=== PATIENT | female | born 1965 | race Caucasian/White ===

== ENCOUNTER 2017-10-23 05:45 | Outpatient (CLI) | payer OTHER ==
[~2017-10-23] VITALS: Ht 162.6 cm; Wt 127.5 kg
[2017-10-23] VITALS (10 sets, daily range): BP systolic 89–136; BP diastolic 48–77
[2017-10-23] MEDS ORDERED: ADVAIR 250-501 EACH INH (06:34)
[2017-10-23] MEDS ORDERED: LASTACAFT3 ML OP (06:34)
[2017-10-23] MEDS ORDERED: FLONASE1 SPRAYS NASAL (06:34)
[2017-10-23] MEDS ORDERED: NORCO 10-325 T1 EACH ORAL (06:34)
[2017-10-23] MEDS ORDERED: VENTOLIN HFA18 GM INH (06:34)
[2017-10-23] MEDS ORDERED: CYMBALTA60 MG ORAL (06:34)
[2017-10-23] MEDS ORDERED: SOMA350 MG PO (06:34)
[2017-10-23] MEDS ORDERED: COLCRYS0.6 M1 PO (06:34)
[2017-10-23] MEDS ORDERED: ESTRADIOL TRAN1 EAC2 TD (06:34)
[2017-10-23] MEDS ORDERED: EPINEPHrine 1mg/1ml Amp ONE (07:02)
[2017-10-23] MEDS ORDERED: Thrombin 5000 units spray kit TOPIC ONE (07:02)
[2017-10-23] MEDS ORDERED: Bupivacaine 0.5% Inj 30 ml vial INJ ONE (07:02)
[2017-10-23] MEDS ORDERED: Surgicel 4in x 8in TOPIC ONE (07:02)
[2017-10-23] MEDS ORDERED: Thrombin 5000 units TOPIC ONE (07:02)
[2017-10-23] MEDS ORDERED: Gelfoam Absorbable 1gm powder pkt TOPIC ONE (07:03)
[2017-10-23] MEDS ORDERED: Bacitracin 50000 Units Vial ONE (07:03)
--- NOTE | 2017-10-23 07:07 | Pre-Procedure Note/Attestation ---
Pre-Procedure Note/Attestation Complete Prior to Procedure Planned Procedure: not applicable Procedure Narrative: For C5-6 ACDF, Has had good relief from C5-6 bilateral selective nerve root blocks. 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 I attest that, if there was a reasonable possibility of needing a blood transfusion, the patient (or the patient's legal insurance claims representative) was given the [place] [employer] standardized written summary, pursuant to the Manohar Zebulon Blood Safety Act ([place] Health and Safety Code # 1645, as amended). I attest that I re-evaluated the patient just prior to the surgery and that there has been no change in the patient's H&P, except as documented below: MARRY PAK Oct 23, 2017 07:07
[2017-10-23] MEDS ORDERED: Clindamycin 600mg 0 ML IV ONE (07:27)
[2017-10-23] MEDS ORDERED: Propofol 200mg/20ml IV ONE (07:30)
[2017-10-23] MEDS ORDERED: Midazolam 2mg/2ml Inj ONE (07:30)
[2017-10-23] MEDS ORDERED: LR 1000ml ONE (07:30)
[2017-10-23] MEDS ORDERED: Glycopyrrolate 0.2mg/ml 1ml Vial ONE (07:30)
[2017-10-23] MEDS ORDERED: Zemuron 50mg/5ml Inj IV ONE (07:30)
[2017-10-23] MEDS ORDERED: Neostigmine 1mg/ml 10ml Inj ONE (07:30)
[2017-10-23] MEDS ORDERED: fentaNYL 100 mcg/2 mL IV ONE (07:30)
--- NOTE | 2017-10-23 08:39 | General Surgery Progress Note ---
General Surgery-Progress Note Subjective Reason for Consult Patient prepped for C5-5 ACDF: Initial X-Ray localization images did not permit visualization of the operative site (C5-5) due to patients body morphology. Decision to not proceed was made. Procedure Performed General anesthesia with intubation. NO SURGICAL PROCEDURE PERFORMED. Objective Last 24 Hour Vital Signs Date Time Temp Pulse Resp B/P (MAP) Pulse Ox O2 Delivery O2 Flow Rate FiO2 10/23/17 06:43 97.4 63 20 136/64 100 Room Air Plan Additional Comments Patient will be recovered and likely discharged home today. MARRY PAK Oct 23, 2017 08:39
[2017-10-23] MEDS ORDERED: LR 1000ml 1,000 ML IVLG SCH (08:49)
--- NOTE | 2017-10-23 08:54 | Anethesia Preoperative Eval ---
Anesthesia Pre-op PMH/ROS General Date of Evaluation: Oct 23, 2017 Time of Evaluation: 08:55 Anesthesiologist: Verna ASA Score: ASA 3 Mallampati Score Class I : Soft palate, uvula, fauces, pillars visible Class II: Soft palate, uvula, fauces visible Class III: Soft palate, base of uvula visible Class IV: Only hard plate visible Mallampati Classification: Class III Surgeon: Yeimi Diagnosis: Hyperostosis Surgical Procedure: ACDF Allergies: Coded Allergies: KETOROLAC (Verified Allergy, Severe, 10/23/17) SWELL UP AND CLOSES AIRWAY PENICILLINS (Verified Allergy, Severe, 10/23/17) SWELL UP AND CLOSES AIRWAY Medications: see eMAR Past Medical History Cardiovascular: Denies: HTN, CAD, SD, valve dz, arrhythmia, other Pulmonary: Reports: asthma, MICHELINE, Denies: COPD, other Gastrointestinal/Genitourinary: Denies: GERD, CRI, ESRD, other Neurologic/Psychiatric: Denies: dementia, CVA, depression/anxiety, TIA, other Endocrine: Denies: DM, hypothyroidism, steroids, other HEENT: Denies: cataract (L), cataract (R), glaucoma, [place] (L), [place] (R), other Hematology/Immune: Denies: anemia, DVT, bleeding disorder, other Musculoskeletal/Integumentary: Denies: OA, RA, DJD, DDD, edema, other Other: obesity PMH Narrative: Asthma, MICHELINE, obesity, OA PSxH Narrative: Knee scopes, BETH, lumbar fusion Anesthesia Pre-op Phys. Exam Physician Exam Last Vital Signs Date Time Temp Pulse Resp B/P (MAP) Pulse Ox O2 Delivery O2 Flow Rate FiO2 10/23/17 06:43 97.4 63 20 136/64 100 Room Air Constitutional: NAD Neurologic: CN 2-12 intact Cardiovascular: RRR, no M/R/G Gastrointestinal: S/NT/ND Airway Exam Mallampati Score: Class III MO: full ROM: full Teeth: intact Anesthesia Pre-op A/P Labs WNL Studies Pre-op Studies: EKG - SR Risk Assessment & Plan Assessment: Class 3 patient for ACDF Plan: GETA, SedLine Status Change Before Surgery: Yes - Case cancelled by Dr. Jalloh after intubation secondary to poor x-ray visualization. Pre-Antibiotics Drug: None ROWENA CHISHOLM M.D. Oct 23, 2017 08:54
--- NOTE | 2017-10-23 08:56 | Immediate Post-Op Evaluation ---
Immediate Post-Op Evalulation Immediate Post-Op Evalulation Procedure: Cancelled ACDF Date of Evaluation: Oct 23, 2017 Time of Evaluation: 09:00 IV Fluids: 700 Blood Pressure Systolic: 92 Blood Pressure Diastolic: 47 Pulse Rate: 77 Respiratory Rate: 21 O2 Sat by Pulse Oximetry: 95 Temperature (Fahrenheit): 97.5 Pain Score (1-10): 0 Nausea: No Vomiting: No Complications Case cancelled by surgeon after intubation Patient Status: awake, patent, extubated, none Hydration Status: adequate Drug: None ROWENA CHISHOLM M.D. Oct 23, 2017 08:56
[2017-10-23] MEDS ORDERED: Midazolam 2mg/2ml Inj IVP PRN (09:00)
[2017-10-23] MEDS ORDERED: DiphenhydrAMINE 50mg/ml Inj IVP PRN (09:00)
[2017-10-23] MEDS ORDERED: Meperidine 50mg/ml Inj(FOR RIGORS ONLY) IVP ONE (09:00)
--- NOTE | 2017-10-23 09:14 | Discharge Instructions ---
Discharge Instructions Discharge Instructions Resume Normal Activity?: Yes Activity: resume normal activities Follow Up Orders Call office for post op appointment. For Congestive Heart Failure Reminder Report to your physician any weight gain of 5 pounds or more in one week. MARRY PEREIRA Oct 23, 2017 09:14
--- NOTE | 2017-10-23 15:30 | Operative Note - Dictated ---
DATE OF OPERATION: 10/23/2017 DATE OF PROPOSED PROCEDURE: 10/23/2017 SURGEON: Otf Jalloh M.D. SUPERVISOR FINISHING ROOM: Shayne Zhou ANESTHESIA: General endotracheal with arterial blood pressure monitoring. ANESTHESIOLOGIST: Manohar Gillespie M.D. 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 OPERATIVE PROCEDURE: The procedure was not performed because of x-ray visualization and physical problems encountered in positioning and traction of the patient's head and extremities for surgery. It was felt that with the patient's sleep apnea, physical habitus, the neck inability to visualize radiographically the C5-C6 level, and difficulty in defining landmarks because of the patient's extreme obesity that going ahead with surgery was not feasible. The patient was induced in the supine position while on the operating table after skillful endotracheal intubation. The head and neck area were then exposed and a bolster was placed between the shoulder blades. The arms were retracted distally and tucked and with traction on each arm, a bolster was placed behind the neck and a traction jimenez was placed on the occiput and chin. A 15 pounds of distal traction were used proximally. Evaluation of the anterior neck revealed a huge anterior pannus extending all the way to 2 cm above the sternal notch, the cricoid and hyoid cartilages were not palpable through this large pannus. Fluoroscopy was brought in and used to take a lateral x-ray. The body of C4 was the last visualizable structure. On lateral, the depth and thickness of the shoulder and shoulder girdle prevented any delineation below the body of C4. Because of the above, it was felt that a safe approach to an anterior decompression at C5-C6 was placement of a graft decompression and fixation with an anterior plate and screws would not be safe or feasible without radiographic control. Therefore, the procedure was aborted. Other considerations might include or something that would provide 3-dimensional CT x-ray in the operating room. Otf Jalloh M.D. DR: JULIANN JOB#: [id number] CC: MAU
== END 2017-10-23 17:45 | disposition home or self-care (01) ==
LOC: OUT 05:45 → UNDOADMIN 05:57 → SDSOVERFLO 05:57 → EDSTATUS 07:00 → OUT 17:45
DX: M47.892 Other spondylosis, cervical region (principal); Z53.9 Procedure and treatment not carried out, unspecified reason; Z90.710 Acquired absence of both cervix and uterus; Z98.1 Arthrodesis status; Z88.0 Allergy status to penicillin; Z88.8 Allergy status to other drugs, medicaments and biological substances; Z80.1 Family history of malignant neoplasm of trachea, bronchus and lung; Z87.891 Personal history of nicotine dependence; G47.33 Obstructive sleep apnea (adult) (pediatric); M10.9 Gout, unspecified; J45.909 Unspecified asthma, uncomplicated; M50.90 Cervical disc disorder, unspecified, unspecified cervical region
CPT/HCPCS: 36415; 86850; 86900; 86901; 87081; J2250; J2405; J2704; J2710; J3010; J7120; 94003; 94150; S0077